=== PATIENT | female | born 1930 | race Caucasian/White ===

== ENCOUNTER 2018-11-27 06:13 | Emergency (ER) | payer MEDICARE ==
--- OUTSIDE RECORDS SUMMARY | 2018-11-27 06:16 | XMS REPORT | Continuity of Care Document ---
:1930 Author Organization Interface Problems Problem Status Onset Date Classification Date Comments Source Reported Medications Medication Details Route Status Patient Ordering Order Source Instructions Provider Date Allergies, Adverse Reactions, Alerts Substance Category Reaction Severity Reaction Status Date Comments Source type Reported Immunizations Immunization Date Given Site Status Last Updated Comments Source Results Order Results Value Reference Date Interpretation Comments Source Name Range Vital Signs Vital Sign Value Date Comments Source Encounters Location Location Encounter Encounter Reason Attending ADM DC Status Source Details Type Number For Provider Date Date Visit Outpatient [id number] [facility] 09/07 [facility] [place] Outpatient [id number] [facility] 09/06 [facility] [place] Procedures Procedure Code Date Perfomer Comments Source
[2018-11-27] MEDS ORDERED: LORAZEPAM 1 MG TABLET ONE (06:40)
[2018-11-27 07:06] LABS: Urine Bacteria <20 /HPF (<20); Urine Culture Reflex Order NOT NEEDED; Urine RBC <5 /HPF (NONE SEEN)
--- NOTE | 2018-11-27 07:45 | ER ---
Nurse's Notes [facility] Name: Rebecca Crum Age: 88 yrs Sex: Female : 1930 Arrival Date: 11/27/2018 Time: 06:14 Bed 4 Private MD: Diagnosis: Restlessness and agitation Presentation: 11/27 06:15 Presenting complaint: EMS states: they were toned out for report of pt with altered bb mental status pt was found earlier today walking down the street from [facility] and was brought back to the facility afterwards the pt was combative for most of the day, pt refused to allow EMS to take her vital signs. Transition of care: patient was received from another setting of care (long-term care facility), [facility]. Onset of symptoms was November 26, 2018. Risk Assessment: Do you want to hurt yourself or someone else? Unable to obtain. Initial Sepsis Screen: Does the patient meet any 2 criteria? No. Patient's initial sepsis screen is negative. Does the patient have a suspected source of infection? No. Patient's initial sepsis screen is negative. Care prior to arrival: None. 06:15 Method Of Arrival: EMS: [facility] bb 06:15 Acuity: [place] 2 bb Historical: - Allergies: 06:26 No Known Allergies; bb - Home Meds: 06:26 levothyroxine 50 mcg tab 1 tab once daily [Active]; memantine oral oral [Active]; bb risperidone 0.5 mg oral TbDL once daily [Active]; rivastigmine 13.3 mg/24 hour transdermal pt24 1 patch once daily [Active]; spironolactone 25 mg Oral tab 1 tab once daily [Active]; vitamin D3 [Active]; - PMHx: 06:26 Dementia; Hypertension; Hypothyroidism; bb - Immunization history:: Adult Immunizations unknown. - Social history:: Smoking status: unknown. - Ebola Screening: : No symptoms or risks identified at this time. Screenin:15 Abuse screen: Denies threats or abuse. Nutritional screening: No deficits noted. tl2 Tuberculosis screening: No symptoms or risk factors identified. Fall Risk Gait- Weak (10 pts.). Assessment: 06:15 General: Appears in no apparent distress. comfortable, Behavior is agitated, tl2 uncooperative. Pain: Denies pain. Neuro: Level of Consciousness is awake, alert, Oriented to person, place, situation, Speech is normal. Cardiovascular: Denies chest pain. Respiratory: Airway is patent Respiratory effort is even, unlabored, Respiratory pattern is regular, symmetrical. GI: No signs and/or symptoms were reported involving the gastrointestinal system. : No signs and/or symptoms were reported regarding the genitourinary system. Derm: Skin is pink, warm \T\ dry. 07:54 Reassessment: Waiting for son to bring the car to take her home. sv Vital Signs: 06:15 BP 167 / 76; Pulse 88; Resp 16 S; Pulse Ox 99% on R/A; Weight 68.04 kg (R); Height 5 bb ft. 6 in. (167.64 cm) (R); 07:10 BP 157 / 68; Pulse 69; Resp 18; Pulse Ox 99% ; sv 06:15 Body Mass Index 24.21 (68.04 kg, 167.64 cm) bb ED Course: 06:14 Patient arrived in ED. bb 06:15 [facility]C [facility] snw 06:15 Mario Holt MD is Attending Physician. snw 06:15 Arm band placed on Patient placed in an exam room, on a stretcher, on pulse oximetry. bb Family accompanied patient. 06:15 Patient has correct armband on for positive identification. Bed in low position. Call tl2 light in reach. Side rails up X2. Adult w/ patient. 06:18 Triage completed. bb 06:50 CT Head Brain wo Cont In Process Unspecified. EDMS 06:52 Straight cath inserted, using sterile technique, 16 Fr. Returned clear yellow urine. tl2 Patient tolerated well. 07:08 Rina Vivas, RN is Primary Nurse. sv 07:08 Report received from Cindi STALLINGS. sv 07:54 No provider procedures requiring assistance completed. Patient did not have IV access sv during this emergency room visit. Administered Medications: 06:57 Drug: Ativan 1 mg Route: PO; tl2 08:01 Follow up: Response: No adverse reaction; Marked relief of symptoms; Anxiety decreased ss Outcome: 07:44 Discharge ordered by . snw 08:02 Discharged to home ambulatory, with family. ss 08:02 Condition: improved 08:02 Discharge instructions given to patient, family, Instructed on discharge instructions, follow up and referral plans. medication usage, Demonstrated understanding of instructions, follow-up care, medications, Prescriptions given X 1. 08:02 Patient left the ED. Signatures: Dispatcher [employer] EDMS Rina Vivas, RN RN Renae Vega, CODE OFFICIAL-C CODE OFFICIAL-Csnw Rachel Mendoza, RN RN bb Palak Ryan RN RN ss Cindi Turner RN RN tl2
--- NOTE | 2018-11-27 07:45 | EDPHYS ---
Physician Documentation [facility] Name: Rebecca Crum Age: 88 yrs Sex: Female : 1930 Arrival Date: 11/27/2018 Time: 06:14 Bed 4 Private MD: ED Physician Mario Holt HPI: 11/27 06:46 This 88 yrs old Female presents to ER via EMS with complaints of Altered snw Mental Status. 06:46 The patient presents with agitation. Onset: The symptoms/episode began/occurred snw yesterday. Possible causes: unknown. Associated signs and symptoms: Pertinent positives: agitation. Current symptoms: In the emergency department the patient's symptoms are unchanged from the initial presentation. Patient's baseline: Neuro: alert and fully oriented, Motor: no deficits, Ambulation: walks without assistance, Speech: normal. The patient has experienced similar episodes in the past, several times. It is unknown whether or not the patient has recently seen a physician. Historical: - Allergies: 06:26 No Known Allergies; bb - Home Meds: 06:26 levothyroxine 50 mcg tab 1 tab once daily [Active]; memantine oral oral [Active]; bb risperidone 0.5 mg oral TbDL once daily [Active]; rivastigmine 13.3 mg/24 hour transdermal pt24 1 patch once daily [Active]; spironolactone 25 mg Oral tab 1 tab once daily [Active]; vitamin D3 [Active]; - PMHx: 06:26 Dementia; Hypertension; Hypothyroidism; bb - Immunization history:: Adult Immunizations unknown. - Social history:: Smoking status: unknown. - Ebola Screening: : No symptoms or risks identified at this time. ROS: 06:44 Eyes: Negative for injury, pain, redness, and discharge, ENT: Negative for injury, snw pain, and discharge, Neck: Negative for injury, pain, and swelling, Cardiovascular: Negative for chest pain, palpitations, and edema, Respiratory: Negative for shortness of breath, cough, wheezing, and pleuritic chest pain, Abdomen/GI: Negative for abdominal pain, nausea, vomiting, diarrhea, and constipation, Back: Negative for injury and pain, : Negative for injury, bleeding, discharge, and swelling, MS/Extremity: Negative for injury and deformity, Skin: Negative for injury, rash, and discoloration, Neuro: Negative for headache, weakness, numbness, tingling, and seizure. 06:44 Constitutional: Positive for agitated all pm at [facility]. Son notified pt very agitated and this occasionally happens but typically pt is jovial and this is a definite change. 06:44 Psych: Positive for insomnia, personality change. Exam: 06:42 Head/Face: Normocephalic, atraumatic. Eyes: Pupils equal round and reactive to light, snw extra-ocular motions intact. Lids and lashes normal. Conjunctiva and sclera are non-icteric and not injected. Cornea within normal limits. Periorbital areas with no swelling, redness, or edema. ENT: Nares patent. No nasal discharge, no septal abnormalities noted. Tympanic membranes are normal and external auditory canals are clear. Oropharynx with no redness, swelling, or masses, exudates, or evidence of obstruction, uvula midline. Mucous membranes moist. Neck: Trachea midline, no thyromegaly or masses palpated, and no cervical lymphadenopathy. Supple, full range of motion without nuchal rigidity, or vertebral point tenderness. No Meningismus. Chest/axilla: Normal chest wall appearance and motion. Nontender with no deformity. No lesions are appreciated. 06:42 Respiratory: Lungs have equal breath sounds bilaterally, clear to auscultation and percussion. No rales, rhonchi or wheezes noted. No increased work of breathing, no retractions or nasal flaring. Abdomen/GI: Soft, non-tender, with normal bowel sounds. No distension or tympany. No guarding or rebound. No evidence of tenderness throughout. Back: No spinal tenderness. No costovertebral tenderness. Full range of motion. Skin: Warm, dry with normal turgor. Normal color with no rashes, no lesions, and no evidence of cellulitis. MS/ Extremity: Pulses equal, no cyanosis. Neurovascular intact. Full, normal range of motion. 06:42 Constitutional: The patient appears awake, well developed, well groomed, well nourished, agitated, in obvious distress, moderately distressed, severely distressed. 06:42 Cardiovascular: Rate: normal, Rhythm: regular, Pulses: no pulse deficits are appreciated, Heart sounds: murmur, systolic, heard in the aortic area, Edema: 1+ edema to level of left foot and right foot, JVD: is not appreciated. 06:42 Neuro: Orientation: appropriate for stated age, Mentation: appropriate for stated age, Memory: no acute changes, Cranial nerves: grossly normal, Cerebellar function: is grossly normal, Motor: is normal, Sensation: is normal, Gait: not tested. seizure activity, is not displayed by the patient. 06:42 Psych: Behavior/mood is aggressive, angry, Affect is animated, Oriented to person, place, Patient has no thoughts/intents to harm self or others. Vital Signs: 06:15 BP 167 / 76; Pulse 88; Resp 16 S; Pulse Ox 99% on R/A; Weight 68.04 kg (R); Height 5 bb ft. 6 in. (167.64 cm) (R); 07:10 BP 157 / 68; Pulse 69; Resp 18; Pulse Ox 99% ; sv 06:15 Body Mass Index 24.21 (68.04 kg, 167.64 cm) bb MDM: 06:15 Patient medically screened. snw 07:45 Data reviewed: vital signs, nurses notes. Data interpreted: Pulse oximetry: on room air snw is 99 %. Interpretation: normal. Counseling: I had a detailed discussion with the patient and/or guardian regarding: the historical points, exam findings, and any diagnostic results supporting the discharge/admit diagnosis, the presence of at least one elevated blood pressure reading (>120/80) during this emergency department visit, lab results, radiology results, the need for outpatient follow up, for definitive care, an rent and housing investigator. Physician consultation: Naren Knott MD was called at 07:46, was contacted at 07:46, regarding consult, patient's condition, outpatient follow-up, in 2-3 days. Special discussion: Based on the history and exam findings, there is no indication for further emergent testing or inpatient evaluation. I discussed with the patient/guardian the need to see the neurologist for further evaluation of the symptoms. I discussed with the patient/guardian the need to see the primary care provider for further evaluation of the symptoms. 11/27 06:16 Order name: Urine Culture snw 11/27 06:16 Order name: Urine Microscopic Only; Complete Time: 07:16 snw 11/27 06:16 Order name: Urine Dipstick-Ancillary (obtain specimen); Complete Time: 06:50 snw 11/27 06:17 Order name: CT Head Brain wo Cont snw 11/27 07:01 Order name: Urine Dipstick--Ancillary (enter results); Complete Time: 08:02 bd 11/27 06:16 Order name: Cath; Complete Time: 06:50 snw Administered Medications: 06:57 Drug: Ativan 1 mg Route: PO; tl2 08:01 Follow up: Response: No adverse reaction; Marked relief of symptoms; Anxiety decreased ss Disposition: 11/27/18 07:44 Discharged to Home. Impression: Restlessness and agitation. - Condition is Stable. - Discharge Instructions: Dysphoria, Insomnia. - Medication Reconciliation Form, Thank You Letter, Antibiotic Education, Prescription Opioid Use form. - Follow up: Private Physician; When: 1 - 2 days; Reason: Recheck today's complaints, Continuance of care, Re-evaluation by your physician. Follow up: Emergency Department; When: As needed; Reason: Worsening of condition. Signatures: Dispatcher [employer] EDOH Renae Fraire, JOE-C BLISTER PACK OPERATOR-Csnw Rachel Mendoza, RN RN bb Palak Ryan RN RN ss Cindi Turner RN RN tl2 Corrections: (The following items were deleted from the chart) 08:02 07:44 11/27/2018 07:44 Discharged to Home. Impression: Restlessness and agitation. ss Condition is Stable. Forms are Medication Reconciliation Form, Thank You Letter, Antibiotic Education, Prescription Opioid Use. Follow up: Private Physician; When: 1 - 2 days; Reason: Recheck today's complaints, Continuance of care, Re-evaluation by your physician. Follow up: Emergency Department; When: As needed; Reason: Worsening of condition. snw
[2018-11-27 07:59] LABS: Urine Blood NEGATIVE (NEG); Urine Glucose NEGATIVE (NEG); Urine Protein NEGATIVE (NEG); Urine pH 5.5 (5.0-7.0)
--- NOTE | 2018-11-27 10:20 | RAD REPORT ---
EXAM DESCRIPTION: CT - Head Brain Wo Cont - 11/27/2018 7:02 am CLINICAL HISTORY: Agitation, insomnia, personality change TECHNIQUE: Multiple axial CT images of the brain were performed followed by sagittal and coronal rec onstructed images. The CT study is performed according to ALARA (as low as reasonably achievable) or ALARA/IMAGE GENTLY, with automatic adjustment of mA and/or kV according to patient size. Performed on: 11/27/2018 at 6:37 AM COMPARISON: None. FINDINGS: There is no evidence of mass, acute mass effect or midline shift. There are no acute extra -axial fluid collections. There is no evidence of acute intracranial hemorrhage. The cerebral sulci and ventricles are prominent consistent with mild to moderate cerebral volume loss . There are scattered patchy areas of decreased subcortical and periventricular attenuation most consis tent with mild chronic microangiopathy. There is no significant mucosal thickening of the paranasal sinuses. The mastoid air cells are clear. The orbital contents are grossly unremarkable. No acute osseous abnormalities are identified. No focal soft tissue abnormalities are identified. There are calcifications along the cavernous carot id arteries. IMPRESSION: 1. There is no evidence of acute intracranial pathology. 2. Mild to moderate cerebral atrophy with findings compatible with chronic microangiopathy. Electronically signed by: Mony Soliman DO 11/27/2018 6:56 AM CDT Due to temporary technical issues with the PACS/Fluency reporting system, reports are being signed by the in house radiologist as a courtesy to ensure prompt reporting. The interpreting radiologist is f ully responsible for the content of the report.
== END 2018-11-27 08:02 | disposition home or self-care (01) ==
LOC: ER 06:13
DX: R45.1 Restlessness and agitation (principal); I10 Essential (primary) hypertension; E03.9 Hypothyroidism, unspecified; F03.90 Unspecified dementia, unspecified severity, without behavioral disturbance, psychotic disturbance, mood disturbance, and anxiety
CPT/HCPCS: 70450; 81003; 81015; 87086; 87088